=== PATIENT | male | born 1985 | race Caucasian/White ===

== ENCOUNTER 2019-11-29 03:57 | Emergency (ER) | payer OTHER ==
[~2019-11-29] VITALS: Ht 182.9 cm; Wt 44.4 kg
[2019-11-29 03:59] VITALS: BP 149/90
[2019-11-29] MEDS ORDERED: IBUPROFEN 600 MG TABLET PO ONE (04:00)
[2019-11-29] MEDS ORDERED: IBUPROFEN 600 MG TABLET ONE (04:04)
[2019-11-29] MEDS ORDERED: PLEASE ENTER ALLERGIES MC SCH (04:30)
== END 2019-11-29 05:31 | disposition home or self-care (01) ==
LOC: ED 04:45
DX: G89.11 Acute pain due to trauma (principal); M25.512 Pain in left shoulder; W18.30XA Fall on same level, unspecified, initial encounter; Y93.89 Activity, other specified; Y92.69 Other specified industrial and construction area as the place of occurrence of the external cause; Y99.9 Unspecified external cause status
CPT/HCPCS: 29105; 99283